=== PATIENT | male | born 1985 | race Caucasian/White ===

== ENCOUNTER 2022-05-28 07:50 | Emergency (ER) | payer OTHER ==
[2022-05-28] MEDS ORDERED: traMADol 50 MG Tab PO ONE (08:04)
== END 2022-05-28 09:22 | disposition home or self-care (01) ==
LOC: FB.ED 07:50
DX: S93.402A Sprain of unspecified ligament of left ankle, initial encounter (principal); X50.1XXA Overexertion from prolonged static or awkward postures, initial encounter
CPT/HCPCS: 73610; 99283; A9270